=== PATIENT | female | born 1960 | race Caucasian/White ===

== ENCOUNTER 2018-05-04 10:11 | Emergency (ER) | payer OTHER, MEDICAID ==
--- NOTE | 2018-05-04 11:05 | EDPHY ---
H & P Smoking Status: Current every day smoker Time Seen by Provider: 05/04/18 10:20 HPI/ROS: CHIEF COMPLAINT: M1 hold HISTORY OF PRESENT ILLNESS: 57-year-old female presents to the emergency department with [facility] on M1 hold. The patient has a history of bipolar and schizoaffective disorder. It is not clear whether this patient takes prescribed medication for this. The patient apparently was not wearing issues and was wondering around busy street and not making any sense. Patient denies substance abuse. She denies homicidal or suicidal ideation. She denies auditory or visual hallucinations although the border police stated that she was delusional. Currently she has no physical complaints. REVIEW OF SYSTEMS: Constitutional: No fever, no chills. Eyes: No double or blurry vision. ENT: No sore throat. Respiratory: No cough, no shortness of breath. Cardiac: No chest pain. Gastrointestinal: No abdominal pain, vomiting or diarrhea. Genitourinary: No dysuria. Musculoskeletal: No neck or back pain. Skin: No rashes. Neurological: No headache. (Latrice Guaman) Past Medical/Surgical History: Bipolar, schizoaffective disorder (Latrice Guaman) Social History: Homeless (Latrice Guaman) Physical Exam: General Appearance: Alert, no distress. No visible signs of trauma to her head. Eyes: Pupils equal and round. Extraocular motions are all intact. ENT: Mouth: Mucous membranes moist. No teeth. Respiratory: No wheezing, rhonchi, or rales, lungs are clear to auscultation. Cardiovascular: Regular rate and rhythm. Gastrointestinal: Abdomen is soft and nontender, no masses, no rebound or guarding, bowel sounds normal. Neurological: Uncooperative, cannot determine. Skin: Warm and dry, no rashes. Musculoskeletal: Nontender to palpate along the cervical, thoracic or lumbar spine. Neck is supple. Extremities: Full range of motion and no peripheral edema. Psychiatric: no agitation. (Latrice Guaman) Constitutional: Initial Vital Signs Temperature (C) 36.8 C 05/04/18 10:18 Heart Rate 92 05/04/18 10:18 Respiratory Rate 18 05/04/18 10:18 Blood Pressure 132/75 H 05/04/18 10:18 O2 Sat (%) 96 05/04/18 10:18 O2 Delivery Mode Room Air Allergies/Adverse Reactions: citalopram [From Celexa] Allergy (Verified 05/04/18 18:13) divalproex sodium [From Depakote] Allergy (Verified 05/04/18 18:13) lithium Allergy (Verified 05/04/18 18:13) Penicillins Allergy (Verified 05/04/18 10:17) Home Medications: Medication Instructions Recorded Seroquel 05/04/18 Medical Decision Making ED Course/Re-evaluation: 57-year-old female presents to the emergency department on M1 hold old. She is clearly psychotic. She was given 10 mg of Zyprexa Zydis and 1 mg Ativan p.o. She is awaiting mental health evaluation. (Latrice Guaman) Differential Diagnosis: Altered mental status including but not limited to hypoglycemia, infectious process, electrolyte abnormality, head injury and intoxicants. (Latrice Guaman) Other Provider: I assumed care of this patient from Dr. Corea at 3:00 p.m.. Records were obtained from [facility] where she was admitted in 2016. At the time of her discharge she had a diagnosis of schizoaffective disorder, bipolar type, chronic and also substance abuse along with posttraumatic stress disorder. She was discharged on Clozaril 400 mg at bedtime, Prozac 20 mg in the morning, and prazosin 2 mg at bedtime. She underwent electroconvulsive therapy while at [facility] in 2015. Mental health roll coverer spoke with me at 7:45 p.m.. Evaluation has come been completed, as best it can be. The patient is unable to meaningfully participate in a full evaluation. She clearly meets criteria for inpatient care. Inpatient placement is being sought. This patient was accepted at [facility]. I have completed the EMTALA form. Transfer will be arranged. (Ksenia Christensen) Care Turn Over: Care will be turned over to Dr. Ksenia Christensen for disposition and plan. (Latrice Guaman) - Data Points Laboratory Results: Laboratory Results 05/04/18 10:41 05/04/18 10:41 05/04/18 05/04/18 05/04/18 12:25 12:25 10:41 WBC RBC Hgb Hct MCV MCH MCHC RDW Plt Count MPV Neut % (Auto) Lymph % (Auto) Crisp % (Auto) Eos % (Auto) Baso % (Auto) Nucleat RBC Rel Count Absolute Neuts (auto) Absolute Lymphs (auto) Absolute Monos (auto) Absolute Eos (auto) Absolute Basos (auto) Absolute Nucleated RBC Immature Gran % Immature Gran # Sodium 142 mEq/L mEq/L (135-145) Potassium 3.8 mEq/L mEq/L (3.3-5.0) Chloride 109 mEq/L mEq/L (97-110) Carbon Dioxide 24 mEq/l mEq/l (22-31) Anion Gap 9 mEq/L mEq/L (8-16) BUN 17 mg/dL mg/dL (7-23) Creatinine 0.7 mg/dL mg/dL (0.6-1.0) Estimated GFR > 60 Glucose 90 mg/dL mg/dL (70-100) Calcium 8.9 mg/dL mg/dL (8.5-10.4) TSH 1.010 uIU/mL uIU/mL (0.465-4.680) Urine Color YELLOW Urine Appearance HAZY Urine pH 5.0 (5.0-7.5) Ur Specific [place] 1.017 (1.002-1.030) Urine Protein NEGATIVE (NEGATIVE) Urine Ketones TRACE H (NEGATIVE) Urine Blood NEGATIVE (NEGATIVE) Urine Nitrate NEGATIVE (NEGATIVE) Urine Bilirubin NEGATIVE (NEGATIVE) Urine Urobilinogen 2.0 EU H EU (0.2-1.0) Ur Leukocyte Esterase 1+ H (NEGATIVE) Urine RBC 5-10 /hpf H /hpf (0-3) Urine WBC 1-3 /hpf /hpf (0-3) Ur Epithelial Cells 1+ /lpf /lpf (NONE-1+) Urine Mucus TRACE /lpf /lpf (NONE-1+) Urine Glucose NEGATIVE (NEGATIVE) Urine Opiates Screen NEGATIVE (NEGATIVE) Urine Barbiturates NEGATIVE (NEGATIVE) Ur Phencyclidine Scrn NEGATIVE (NEGATIVE) Ur Amphetamine Screen NEGATIVE (NEGATIVE) U Benzodiazepines Scrn NEGATIVE (NEGATIVE) Urine Cocaine Screen NON-NEGATIVE H (NEGATIVE) U Marijuana (THC) Screen NON-NEGATIVE H (NEGATIVE) Ethyl Alcohol < 10 mg/dL mg/dL (0-10) 05/04/18 10:41 WBC 6.70 10^3/uL 10^3/uL (3.80-9.50) RBC 3.83 10^6/uL L 10^6/uL (4.18-5.33) Hgb 11.9 g/dL L g/dL (12.6-16.3) Hct 35.9 % L % (38.0-47.0) MCV 93.7 fL fL (81.5-99.8) MCH 31.1 pg pg (27.9-34.1) MCHC 33.1 g/dL g/dL (32.4-36.7) RDW 13.3 % % (11.5-15.2) Plt Count 208 10^3/uL 10^3/uL (150-400) MPV 11.0 fL fL (8.7-11.7) Neut % (Auto) 59.4 % % (39.3-74.2) Lymph % (Auto) 25.7 % % (15.0-45.0) Crisp % (Auto) 11.0 % % (4.5-13.0) Eos % (Auto) 3.0 % % (0.6-7.6) Baso % (Auto) 0.6 % % (0.3-1.7) Nucleat RBC Rel Count 0.0 % % (0.0-0.2) Absolute Neuts (auto) 3.98 10^3/uL 10^3/uL (1.70-6.50) Absolute Lymphs (auto) 1.72 10^3/uL 10^3/uL (1.00-3.00) Absolute Monos (auto) 0.74 10^3/uL 10^3/uL (0.30-0.80) Absolute Eos (auto) 0.20 10^3/uL 10^3/uL (0.03-0.40) Absolute Basos (auto) 0.04 10^3/uL 10^3/uL (0.02-0.10) Absolute Nucleated RBC 0.00 10^3/uL 10^3/uL (0-0.01) Immature Gran % 0.3 % % (0.0-1.1) Immature Gran # 0.02 10^3/uL 10^3/uL (0.00-0.10) Sodium Potassium Chloride Carbon Dioxide Anion Gap BUN Creatinine Estimated GFR Glucose Calcium TSH Urine Color Urine Appearance Urine pH Ur Specific [place] Urine Protein Urine Ketones Urine Blood Urine Nitrate Urine Bilirubin Urine Urobilinogen Ur Leukocyte Esterase Urine RBC Urine WBC Ur Epithelial Cells Urine Mucus Urine Glucose Urine Opiates Screen Urine Barbiturates Ur Phencyclidine Scrn Ur Amphetamine Screen U Benzodiazepines Scrn Urine Cocaine Screen U Marijuana (THC) Screen Ethyl Alcohol Medications Given: Discontinued Medications Olanzapine (Zyprexa Zydis) 10 mg PO EDNOW ONE Stop: 05/04/18 12:18 Last Admin: 05/04/18 12:22 Dose: 10 mg Departure - Departure Disposition: Other Psych, Not [place] Clinical Impression: Bipolar 1 disorder, Polysubstance abuse Psychosis Qualifiers: Psychosis type: other Qualified Code(s): F28 - Other psychotic disorder not due to a substance or known physiological condition Condition: Fair Instructions: Psychotic Disorder (ED) Referrals: NONE *PRIMARY CARE P,. [Primary Care Provider] - As per Instructions
[2018-05-04 11:13] LABS: PLATELET COUNT 208 10^3/uL (150-400)
[2018-05-04] MEDS ORDERED: OLANZapine DISINTEGR 10 MG TAB PO ONE (12:17)
[2018-05-04] MEDS ORDERED: LORazepam 1 MG TAB PO ONE (14:21)
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
--- NOTE | 2018-05-04 21:57 | ASMTTCLDSP ---
TLC Discharge Disposition Disposition: Answers: Transfer Discharge Concerns/Recommendations: Notes: In consultation with [facility] ED physician, Ksenia Christensen MD and on-call psychiatrist, Vero Ellington MD, both concurred that pt appears to meet 27-65 criteria requiring psychiatric hospitalization as pt appears to be gravely disabled due to a mental illness condition. Date and time M1 hold 05/04/2018 10:00 PM vacated (time format is hh:mm): Type of Hold: Answers: M1/72-hour Hold Hold initiated by: Answers: Police For Transfers, Accepting [facility]: For Transfers, Accepting Dr. Melecio Caceres Psychiatrist: For Transfers, Reason [address] [place] at cap Patient is Being Transferred: Date Signed: 05/04/2018 09:56 PM Electronically Signed By:Radha Beatty
[2018-05-05 01:50] VITALS: BP 130/84
== END 2018-05-05 01:48 ==
LOC: EEVIPCON 10:11
PROC: GZ11ZZZ Psychological Tests, Personality and Behavioral (ICD-10-PCS; principal; 2018-05-04)
DX: F28 Other psychotic disorder not due to a substance or known physiological condition (principal); F31.9 Bipolar disorder, unspecified; F19.10 Other psychoactive substance abuse, uncomplicated; F17.200 Nicotine dependence, unspecified, uncomplicated
CPT/HCPCS: 80305; G0480